=== PATIENT | female | born 1995 | race Caucasian/White ===

== ENCOUNTER 2016-10-17 22:32 | Observation (INO) | payer OTHER ==
[2016-10-17] MEDS ORDERED: SODIUM CHLORIDE 0.9% 500 ML IV STA (22:42)
--- NOTE | 2016-10-17 22:47 | ED ---
General Adult HPI - General Chief complaint: Overdose Stated complaint: Overdose Time Seen by Provider: 10/17/16 22:33 Source: patient, RN notes reviewed Mode of arrival: EMS Limitations: no limitations - History of Present Illness Initial comments: Patient is a pleasant 21-year-old female presenting to the emergency department following a syncopal episode. Patient admits to doing LSD yesterday sometime around 4 PM. Patient states she has not been a year drinking or sleeping. Patient states she just feels somewhat tired. Patient denies thoughts of self- harm or intentional overdose. Patient states she has passed out several times in the past related to dehydration. Patient states she feels she passed out this time because she is dehydrated. No chest pain or palpitations. No dyspnea. No abdominal pain. No headache or weakness or confusion. - Related Data Home Medications Medication Instructions Recorded Confirmed No Known Home Medications [No 10/17/16 10/17/16 Known Home Medications] Allergies Allergy/AdvReac Type Severity Reaction Status Date / Time No Known Allergies Allergy Verified 10/17/16 22:37 Review of Systems ROS Statement: Those systems with pertinent positive or pertinent negative responses have been documented in the HPI. ROS Other: All systems not noted in ROS Statement are negative. Constitutional: Denies: fever Eyes: Denies: eye pain ENT: Denies: ear pain Respiratory: Denies: cough Cardiovascular: Reports: syncope. Denies: chest pain Endocrine: Denies: fatigue Gastrointestinal: Denies: abdominal pain Genitourinary: Denies: dysuria Musculoskeletal: Denies: back pain Skin: Denies: lesions Past Medical History Additional Past Medical History / Comment(s): PCOS History of Any Multi-Drug Resistant Organisms: None Reported Past Surgical History: No Surgical Hx Reported Past Psychological History: No Psychological Hx Reported Smoking Status: Never smoker Past Alcohol Use History: None Reported Past Drug Use History: Marijuana General Exam Limitations: no limitations General appearance: alert, in no apparent distress Head exam: Present: atraumatic, normocephalic Eye exam: Present: normal appearance, PERRL, EOMI. Absent: nystagmus ENT exam: Present: normal oropharynx Neck exam: Present: normal inspection Respiratory exam: Present: normal lung sounds bilaterally Cardiovascular Exam: Present: regular rate, normal rhythm Expanded Peripheral pulses: 2+: Radial (R), Radial (L), Dorsalis Pedis (R), Dorsalis Pedis (L) Extremities exam: Present: normal inspection, full ROM Neurological exam: Present: alert, CN II-XII intact. Absent: motor sensory deficit Expanded Motor strength exam: RUE: 5, LUE: 5, RLE: 5, LLE: 5 Psychiatric exam: Present: other (Patient does appear hypomanic.) Skin exam: Present: other (Old healed forearm abrasions) Course Vital Signs 10/17/16 22:33 Temperature 98.3 F Pulse Rate 74 Respiratory 18 Rate Blood Pressure 143/86 O2 Sat by Pulse 97 Oximetry EKG Findings - EKG Comments: EKG Findings:: Normal sinus rhythm at 94. IA 190. QRS 82. QT 550. QTC 687. Normal axis. Normal QRS. Normal ST-T. Medical Decision Making - Medical Decision Making Patient reexamined and resting comfortably in bed. Patient symptom-free. Patient updated on results and concerns regarding EKG. Case discussed in detail with Dr. Baldwin, who will admit for hospital call. - Lab Data Result diagrams: 10/17/16 21:45 10/17/16 21:45 Lab Results 10/17/16 10/17/16 10/17/16 Range/Units 21:45 21:45 21:45 WBC 5.1 (4.0-11.0) k/uL RBC 4.14 (3.80-5.40) m/uL Hgb 12.6 (11.4-16.0) gm/dL Hct 38.0 (34.0-46.0) % MCV 91.8 (80.0-100.0) fL MCH 30.3 (25.0-35.0) pg MCHC 33.1 (31.0-37.0) g/dL RDW 13.8 (11.5-15.5) % Plt Count 277 (150-450) k/uL Neutrophils % 64 % Lymphocytes % 26 % Monocytes % 6 % Eosinophils % 0 % Basophils % 1 % Neutrophils # 3.3 (1.3-7.7) k/uL Lymphocytes # 1.3 (1.0-4.8) k/uL Monocytes # 0.3 (0-1.0) k/uL Eosinophils # 0.0 (0-0.7) k/uL Basophils # 0.0 (0-0.2) k/uL PT 11.9 (9.0-12.0) sec INR 1.2 (<1.1) Sodium 138 (137-145) mmol/L Potassium 3.4 L (3.5-5.1) mmol/L Chloride 103 (98-107) mmol/L Carbon Dioxide 22 (22-30) mmol/L Anion Gap 13 mmol/L BUN 11 (7-17) mg/dL Creatinine 0.60 (0.52-1.04) mg/dL Est GFR (MDRD) Af Amer >60 (>60 ml/min/1.73 sqM) Est GFR (MDRD) Non-Af >60 (>60 ml/min/1.73 sqM) Glucose 105 H (74-99) mg/dL Calcium 9.3 (8.4-10.2) mg/dL Phosphorus 3.2 (2.5-4.5) mg/dL Magnesium 1.7 (1.6-2.3) mg/dL Total Bilirubin 0.7 (0.2-1.3) mg/dL AST 35 (14-36) U/L ALT 34 (9-52) U/L Alkaline Phosphatase 80 (38-126) U/L Total Protein 8.2 (6.3-8.2) g/dL Albumin 4.5 (3.5-5.0) g/dL Urine HCG, Qual (Not Detectd) Salicylates <1.0 mg/dL Urine Opiates Screen (NotDetected) Ur Oxycodone Screen (NotDetected) Urine Methadone Screen (NotDetected) Ur Propoxyphene Screen (NotDetected) Acetaminophen <10.0 ug/mL Ur Barbiturates Screen (NotDetected) U Tricyclic Antidepress (NotDetected) Ur Phencyclidine Scrn (NotDetected) Ur Amphetamines Screen (NotDetected) U Methamphetamines Scrn (NotDetected) U Benzodiazepines Scrn (NotDetected) Urine Cocaine Screen (NotDetected) U Marijuana (THC) Screen (NotDetected) Serum Alcohol <10 mg/dL 10/17/16 10/17/16 Range/Units 22:50 22:50 WBC (4.0-11.0) k/uL RBC (3.80-5.40) m/uL Hgb (11.4-16.0) gm/dL Hct (34.0-46.0) % MCV (80.0-100.0) fL MCH (25.0-35.0) pg MCHC (31.0-37.0) g/dL RDW (11.5-15.5) % Plt Count (150-450) k/uL Neutrophils % % Lymphocytes % % Monocytes % % Eosinophils % % Basophils % % Neutrophils # (1.3-7.7) k/uL Lymphocytes # (1.0-4.8) k/uL Monocytes # (0-1.0) k/uL Eosinophils # (0-0.7) k/uL Basophils # (0-0.2) k/uL PT (9.0-12.0) sec INR (<1.1) Sodium (137-145) mmol/L Potassium (3.5-5.1) mmol/L Chloride (98-107) mmol/L Carbon Dioxide (22-30) mmol/L Anion Gap mmol/L BUN (7-17) mg/dL Creatinine (0.52-1.04) mg/dL Est GFR (MDRD) Af Amer (>60 ml/min/1.73 sqM) Est GFR (MDRD) Non-Af (>60 ml/min/1.73 sqM) Glucose (74-99) mg/dL Calcium (8.4-10.2) mg/dL Phosphorus (2.5-4.5) mg/dL Magnesium (1.6-2.3) mg/dL Total Bilirubin (0.2-1.3) mg/dL AST (14-36) U/L ALT (9-52) U/L Alkaline Phosphatase (38-126) U/L Total Protein (6.3-8.2) g/dL Albumin (3.5-5.0) g/dL Urine HCG, Qual Not Detected (Not Detectd) Salicylates mg/dL Urine Opiates Screen Not Detected (NotDetected) Ur Oxycodone Screen Not Detected (NotDetected) Urine Methadone Screen Not Detected (NotDetected) Ur Propoxyphene Screen Not Detected (NotDetected) Acetaminophen ug/mL Ur Barbiturates Screen Not Detected (NotDetected) U Tricyclic Antidepress Not Detected (NotDetected) Ur Phencyclidine Scrn Not Detected (NotDetected) Ur Amphetamines Screen Not Detected (NotDetected) U Methamphetamines Scrn Not Detected (NotDetected) U Benzodiazepines Scrn Not Detected (NotDetected) Urine Cocaine Screen Not Detected (NotDetected) U Marijuana (THC) Screen Detected H (NotDetected) Serum Alcohol mg/dL - Radiology Data Interpreted by me: Chest x-ray shows no acute process Disposition Clinical Impression: Syncope, QT prolongation Disposition: ADMITTED IP TO THIS HOSP
[2016-10-17 23:03] LABS: Basophils % (A) 1 %; CH 30.9; CHCM 33.8; Eosinophils % (A) 0 %; HDW 2.87; HGB 12.6 gm/dL (11.4-16.0); Luc # (Auto) 0.16; Luc % (Auto) 3; Lymphocytes # (A) 1.3 k/uL (1.0-4.8); Lymphocytes % (A) 26 %; MCH 30.3 pg (25.0-35.0); MCHC 33.1 g/dL (31.0-37.0); MCV 91.8 fL (80.0-100.0); Mean Platelet Volume 6.3; Monocytes # (A) 0.3 k/uL (0-1.0); Monocytes % (A) 6 %; Neutrophils # (A) 3.3 k/uL (1.3-7.7); Neutrophils % (A) 64 %; RBC 4.14 m/uL (3.80-5.40); RDW 13.8 % (11.5-15.5); WBC 5.1 k/uL (4.0-11.0); WBC (Perox) 5.11
[2016-10-17 23:04] LABS: INR 1.2 (<1.1); Prothrombin Time 11.9 sec (9.0-12.0)
[2016-10-17 23:10] LABS: ALT 34 U/L (9-52); AST 35 U/L (14-36); Acetaminophen <10.0 ug/mL; Alcohol <10 mg/dL; Alkaline Phosphatase 80 U/L (38-126); Anion Gap 13 mmol/L; Blood Urea Nitrogen 11 mg/dL (7-17); Calcium 9.3 mg/dL (8.4-10.2); Carbon Dioxide 22 mmol/L (22-30); Chloride 103 mmol/L (98-107); Glucose 105 mg/dL (74-99); Magnesium 1.7 mg/dL (1.6-2.3); Non-African American GFR(MDRD) >60 (>60 ml/min/1.73 sqM); Phosphorous 3.2 mg/dL (2.5-4.5); Potassium 3.4 mmol/L (3.5-5.1); Salicylate <1.0 mg/dL; Sodium 138 mmol/L (137-145); Total Bilirubin 0.7 mg/dL (0.2-1.3); Total Protein 8.2 g/dL (6.3-8.2)
[2016-10-17 23:18] LABS: Creatine Kinase 460 U/L (30-135)
[2016-10-17] MEDS ORDERED: NALOXONE 0.4 MG/ML 1 ML VIAL IV PRN (23:27)
[2016-10-17 23:32] LABS: Creatine Kinase MB 1.5 ng/mL (0.0-2.4); Troponin I <0.012 ng/mL (0.000-0.034)
--- NOTE | 2016-10-17 23:34 | XR ---
EXAM: XR Chest, 1 View CLINICAL HISTORY: Reason: syncope TECHNIQUE: Frontal view of the chest. COMPARISON: No relevant prior studies available. FINDINGS: Lungs: Unremarkable. No consolidation. Pleural space: Unremarkable. No pneumothorax. Heart: Unremarkable. No cardiomegaly. Mediastinum: Unremarkable. Bones/joints: Unremarkable. IMPRESSION: No acute cardiopulmonary disease.
--- NOTE | 2016-10-17 23:45 | CT ---
EXAM: CT Head Without Intravenous Contrast CLINICAL HISTORY: Reason: syncope TECHNIQUE: Axial computed tomography images of the head/brain without intravenous contrast. CTDI is 60.3 mGy and DLP is 1199 mGy-cm This CT exam was performed using one or more of the following dose reduction techniques: automated exposure control, adjustment of the mA and/or kV according to patient size, and/or use of iterative reconstruction technique. COMPARISON: No relevant prior studies available. FINDINGS: Brain: Unremarkable. No hemorrhage. No acute cortical infarct. No mass effect or midline shift. Ventricles: Unremarkable. Bones/joints: Unremarkable. No acute fracture. Soft tissues: Unremarkable. Sinuses: Unremarkable as visualized. Mastoid air cells: Unremarkable as visualized. IMPRESSION: No acute intracranial process.
--- NOTE | 2016-10-18 11:49 | P.CRDCN ---
History of Present Illness Consult date: 10/18/16 Chief complaint: Syncope History of present illness: This is a pleasant 21-year-old female patient who was brought to the emergency room because she had syncope at home. She was in her usual state of health when she was at home yesterday and she tried to stand and suddenly lost her consciousness. Her boyfriend found the patient on the floor. We don't know for how long she lost her consciousness. No associative symptoms of chest pain or shortness of breath or dizziness or lightheadedness before. The patient stated that she had similar episode in the past. The EKG showed sinus rhythm with a prolonged QT interval. The blood work came in to be positive for marijuana. Also the patient was hypokalemic. The patient has no significant family history of sudden cardiac . I am going to consult Dr. Dumont regarding prolonged QT. Past Medical History Additional Past Medical History / Comment(s): PCOS History of Any Multi-Drug Resistant Organisms: None Reported Past Surgical History: No Surgical Hx Reported Past Anesthesia/Blood Transfusion Reactions: No Reported Reaction Additional Past Anesthesia/Blood Transfusion Reaction / Comment(s): patient has never received blood transfusions of anesthesia Past Psychological History: Bipolar Smoking Status: Never smoker Past Alcohol Use History: None Reported Past Drug Use History: Marijuana - Past Family History Father Family Medical History: No Reported History Mother Family Medical History: No Reported History Medications and Allergies Home Medications Medication Instructions Recorded Confirmed Type No Known Home Medications [No 10/17/16 10/18/16 History Known Home Medications] Allergies Allergy/AdvReac Type Severity Reaction Status Date / Time metronidazole [From Flagyl] Allergy Rash/Hives Verified 10/18/16 07:40 Milk Containing Products AdvReac Nausea & Verified 10/18/16 07:40 [Dairy] Vomiting Physical Exam Vitals: Vital Signs Temp Pulse Pulse Resp BP BP Pulse Ox 10/18/16 09:25 97 10/18/16 08:00 97.5 F L 92 18 115/65 100 10/18/16 04:00 81 18 115/70 97 10/18/16 00:06 98.9 F 62 18 115/76 96 Intake and Output 10/17/16 10/18/16 10/18/16 22:59 06:59 14:59 Intake Total 120 Balance 120 Intake: Oral 120 Other: Voiding Method Toilet Urinal # Voids 1 0 Weight 59.8 kg - Constitutional General appearance: no acute distress - Respiratory Respiratory: bilateral: CTA - Cardiovascular Rhythm: regular Heart sounds: normal: S1, S2 Results 10/17/16 21:45 10/17/16 21:45 Current Medications Generic Name Dose Route Start Last Admin Trade Name Freq PRN Reason Stop Dose Admin Naloxone HCl 0.2 mg 10/17/16 23:27 Narcan IV Q2M PRN Opioid Reversal Intake and Output 10/17/16 10/18/16 10/18/16 22:59 06:59 14:59 Intake Total 120 Balance 120 Intake: Oral 120 Other: Voiding Method Toilet Urinal # Voids 1 0 Weight 59.8 kg Assessment and Plan Plan: Assessment Recurrent syncope Abnormal EKG with prolonged QT Plan Replace the potassium Consult electrophysiology Obtain an echocardiogram was Doppler
--- NOTE | 2016-10-18 14:49 | HP ---
DATE OF ADMISSION: . CHIEF COMPLAINT: A 21-year-old white female with syncope. HISTORY OF PRESENT ILLNESS: This is a 21-year-old white female with syncope. She is found ( ) at home and loss consciousness and fell. Boyfriend found the patient on the floor, does not know how long she had lost consciousness. She was brought to the hospital, evaluated in the emergency room. She had a prolonged QT interval. States she is on marijuana and LSD at home, hypokalemic. No significant family history of sudden cardiac . Admitted for prolonged QTc. Has clinical history of bipolar. No smoker, positive marijuana. FAMILY HISTORY: Father negative. Mother negative. MEDICATIONS: No home medicines. ALLERGIES: FLAGYL. PHYSICAL EXAM: Temp 97.5, pulse 92, respirations 16, blood pressure 115/60's. CARDIOVASCULAR: S1, S2. LUNGS: Clear. GI: Soft. HEMATOLOGIC: Negative Homans. PSYCH: Fair mood and affect. NEUROLOGIC: Alert and oriented x3. VASCULAR: Normal dorsalis pedis, posterior tibial and radial pulses. Sodium 138, potassium 3.4, white count 5.1, and hemoglobin 12.6. ASSESSMENT: 1. Recurrent syncope, abnormal EKG with prolonged QT, replace her potassium. Possible ETC test will be done, order echo. She will be admitted, watched for 24 hours prior to discharge. Will check her thyroid levels. 2. Please see further orders on the chart.
[2016-10-19 01:23] VITALS: RESP 16
--- NOTE | 2016-10-19 10:56 | P.PN ---
Subjective 21-year-old female being seen on rounds with the attending this morning patient was seen and examined. Patient currently is denying any dizziness lightheadedness heart palpitations chest pain or shortness of breath. Patients being followed by cardiology. Patient additionally to be seen today by Dr. wolfe for an EKG that showed sinus rhythm with a prolonged QT interval. Patient did present to the emergency room with a syncopal episode at home. Patient is presenting to the emergency room per the workup did show blood work positive for marijuana. On admission the potassium was noted to be low was 3.4. Objective - Vital Signs Vital signs: Vital Signs Temp 97.5 F L 10/19/16 08:44 Pulse 55 L 10/19/16 08:44 Resp 16 10/19/16 08:44 BP 100/71 10/19/16 08:44 Pulse Ox 99 10/19/16 08:44 Intake & Output 10/18/16 10/19/16 10/19/16 18:59 06:59 18:59 Intake Total 474 118 Balance 474 118 Weight 59.5 kg Intake: Oral 474 118 Other: Voiding Method Toilet Toilet Urinal # Voids 1 1 # Bowel Movements 0 0 - Exam Physical exam 21-year-old female sitting up in bed oriented 3 in no acute distress Lungs essentially clear adequate air movement on room air Heart S1-S2 audible and regular Abdomen soft nontender reports no nausea vomiting Extremities no edema noted - Labs CBC & Chem 7: 10/17/16 21:45 10/17/16 21:45 Assessment and Plan Plan: Impression Present on admission syncopal episode unclear etiology Present on admission prolonged QT interval 0.550 per 12-lead EKG Present on admission positive drug screen for marijuana Present on admission hypokalemia History of polysubstance abuse Clinical history of bipolar Plan Check labs now correct as indicated Await electrophysiology eval by Dr. wolfe DVT and GI prophylaxis Further recommendations pending The above dictated assessment and findings were discussed with dr liriano Impression and the plan of care have been dictated as directed. Carie Pope nurse practitioner acting as a scribe for dr liriano
[2016-10-19 11:44] LABS: ALT 33 U/L (9-52); AST 31 U/L (14-36); Alkaline Phosphatase 69 U/L (38-126); Anion Gap 11 mmol/L; Blood Urea Nitrogen 5 mg/dL (7-17); Calcium 9.9 mg/dL (8.4-10.2); Carbon Dioxide 25 mmol/L (22-30); Chloride 104 mmol/L (98-107); Glucose 89 mg/dL (74-99); Magnesium 1.9 mg/dL (1.6-2.3); Non-African American GFR(MDRD) >60 (>60 ml/min/1.73 sqM); Potassium 4.5 mmol/L (3.5-5.1); Sodium 140 mmol/L (137-145); Total Bilirubin 0.8 mg/dL (0.2-1.3); Total Protein 8.7 g/dL (6.3-8.2)
--- NOTE | 2016-10-19 11:50 | ECHOF ---
Referral Reason:syncope MEASUREMENTS -------- HEIGHT: 175.3 cm WEIGHT: 59.4 kg BP: 115/65 RVIDd: 2.6 cm (< 3.3) IVSd: 1.0 cm (0.6 - 1.1) LVIDd: 4.4 cm (3.9 - 5.3) LVPWd: 1.0 cm (0.6 - 1.1) IVSs: 1.1 cm LVIDs: 4.0 cm LVPWs: 1.0 cm LA Diam: 2.9 cm (2.7 - 3.8) LAESV Index (A-L): 19.83 ml/m Ao Diam: 2.6 cm (2.0 - 3.7) AV Cusp: 2.1 cm (1.5 - 2.6) LA Diam: 2.8 cm (2.7 - 3.8) MV EXCURSION: 24.816 mm (> 18.000) MV EF SLOPE: 129 mm/s (70 - 150) EPSS: 0.3 cm MV E Jose: 0.87 m/s MV DecT: 200 ms MV A Jose: 0.43 m/s MV E/A Ratio: 2.04 RAP: 5.00 mmHg RVSP: 13.62 mmHg FINDINGS -------- Sinus rhythm. This was a technically good study. LV size, wall thickness and systolic function are normal, with an EF greater than 55%. The right ventricle is normal in size. Normal LA size by volume 22+/-6 ml/m2. The right atrial size is normal. The aortic valve is trileaflet, and appears structurally normal. No aortic stenosis or regurgitation. Mild mitral regurgitation is present. Redundant MV Leaflet Mild tricuspid regurgitation present. There is no evidence of pulmonary hypertension. The right ventricular systolic pressure, as measured by Doppler, is 13.62mmHg. There is no pulmonic regurgitation present. The aortic root size is normal. There is no pericardial effusion. CONCLUSIONS -------- 1. LV size, wall thickness and systolic function are normal, with an EF greater than 55%. 2. Mild mitral regurgitation is present. 3. Redundant MV Leaflet 4. Mild tricuspid regurgitation present. 5. There is no evidence of pulmonary hypertension. 6. The right ventricular systolic pressure, as measured by Doppler, is 13.62mmHg. 7. The aortic root size is normal. VACCINE SPECIALIST: Rachel Godoy RDCS
[2016-10-19 12:59] VITALS: BP 104/67; PULSE 72; TEMP 97.4
--- NOTE | 2016-10-19 14:53 | P.PN ---
Subjective Principal diagnosis: Syncope This is a pleasant 21-year-old female patient who was brought to the emergency room because she had syncope at home. She was in her usual state of health when she was at home yesterday and she tried to stand and suddenly lost her consciousness. Her boyfriend found the patient on the floor. We don't know for how long she lost her consciousness. No associative symptoms of chest pain or shortness of breath or dizziness or lightheadedness before. The patient stated that she had similar episode in the past.The EKG showed sinus rhythm with a prolonged QT interval. The blood work came in to be positive for marijuana. Also the patient was hypokalemic.The patient has no significant family history of sudden cardiac . Orthostatic blood pressure and heart rate were obtained which were negative. TSH normal. Dr. Dumont was requested to see the patient in consultation for prolonged QT. Objective - Vital Signs Vital signs: Vital Signs Temp 97.4 F L 10/19/16 12:00 Pulse 72 10/19/16 12:00 Resp 16 10/19/16 12:00 BP 104/67 10/19/16 12:00 Pulse Ox 98 10/19/16 12:00 Intake & Output 10/18/16 10/19/16 10/19/16 18:59 06:59 18:59 Intake Total 474 118 Balance 474 118 Weight 59.5 kg Intake: Oral 474 118 Other: Voiding Method Toilet Toilet Urinal # Voids 1 1 # Bowel Movements 0 0 - Exam PHYSICAL EXAMINATION: HEENT: Head is atraumatic, normocephalic. Pupils equal, round. Neck is supple. There is no elevated jugular venous pressure. HEART EXAMINATION: Heart S1, S2 normal. No murmur or gallop heard. CHEST EXAMINATION: Lungs are clear to auscultation and precussion. No chest wall tenderness is noted on palpation or with deep breathing. ABDOMEN: Soft, nontender. Bowel sounds are heard. No organomegaly noted. EXTREMITIES: 2+ peripheral pulses with no evidence of peripheral edema and no calf tenderness noted. NEUROLOGIC patient is awake, alert and oriented -3. . - Labs CBC & Chem 7: 10/17/16 21:45 10/19/16 10:59 Labs: Abnormal Lab Results - Last 24 Hours (Table) 10/19/16 Range/Units 10:59 BUN 5 L (7-17) mg/dL Total Protein 8.7 H (6.3-8.2) g/dL Assessment and Plan (1) Marijuana smoker Status: Acute (2) QT prolongation Status: Acute (3) Syncope Status: Acute Plan: From cardiology's perspective, orthostatic blood pressure and heart rate have been negative. Echocardiogram with Doppler study was performed which revealed normal left ventricular systolic function. Dr. Dumont will be in to see the patient in consultation today. Further recommendations to follow. DNP note has been reviewed, I agree with a documented findings and plan of care. Patient was seen and examined.
--- NOTE | 2016-10-19 15:34 | P.DS ---
Providers Date of admission: 10/17/16 23:27 Expected date of discharge: 10/19/16 Attending physician: Heath Liriano Consults: 10/19/16 07:45 Consult Physician Urgent Consulting Provider: Deepak Wolfe Consult Reason/Comments: long QT Do you want consulting provider notified?: Yes Primary care physician: Stated None Hospital Course: This is a pleasant 21-year-old female patient who was brought to the emergency room because she had syncope at home. She was in her usual state of health when she was at home yesterday and she tried to stand and suddenly lost her consciousness. Her boyfriend found the patient on the floor. We don't know for how long she lost her consciousness. No associative symptoms of chest pain or shortness of breath or dizziness or lightheadedness before. The patient stated that she had similar episode in the past.The EKG showed sinus rhythm with a prolonged QT interval. The blood work came in to be positive for marijuana. Also the patient was hypokalemic.The patient has no significant family history of sudden cardiac . Orthostatic blood pressure and heart rate were obtained which were negative. TSH normal. Dr. Wolfe was requested to see the patient in consultation for prolonged QT. Patient did have an echocardiogram that showed normal LV systolic function. Dr. wolfe indicated that from his perspective the patient could be followed in the outpatient setting for an outpatient stress test no further EP workup at this time Patient was felt to be hemodynamically stable and appropriate proceed with a discharge to home Impression Present on admission syncopal episode unclear etiology Present on admission prolonged QT interval 0.550 per 12-lead EKG Present on admission positive drug screen for marijuana Present on admission hypokalemia History of polysubstance abuse Clinical history of bipolar The above dictated assessment and findings were discussed with dr liriano Impression and the plan of care have been dictated as directed. Carie Pope nurse practitioner acting as a scribe for dr liriano Plan - Discharge Summary Discharge Medication List No Known Home Medications [No Known Home Medications] 10/17/16 [History] Follow up Appointment(s)/Referral(s): None,Stated [Primary Care Provider] - 1-2 days Heath Liriano MD [STAFF PHYSICIAN] - 10/21/16 Discharge Disposition: HOME SELF-CARE
--- NOTE | 2016-10-19 19:07 | P.CRDCN ---
History of Present Illness History of present illness: Asked by Dr. Andino and Dr. novoa to consult on this patient who presented with an episode of loss of consciousness upon standing with the computer readout of the QT interval is being prolonged. I went to see the patient at 7 PM today but she had already been discharged She will be seeing Dr. Andino as an outpatient Past Medical History Additional Past Medical History / Comment(s): PCOS History of Any Multi-Drug Resistant Organisms: None Reported Past Surgical History: No Surgical Hx Reported Past Anesthesia/Blood Transfusion Reactions: No Reported Reaction Additional Past Anesthesia/Blood Transfusion Reaction / Comment(s): patient has never received blood transfusions of anesthesia Past Psychological History: Bipolar Smoking Status: Never smoker Past Alcohol Use History: None Reported Past Drug Use History: Marijuana - Past Family History Father Family Medical History: No Reported History Mother Family Medical History: No Reported History Medications and Allergies Home Medications Medication Instructions Recorded Confirmed Type No Known Home Medications [No 10/17/16 10/18/16 History Known Home Medications] Allergies Allergy/AdvReac Type Severity Reaction Status Date / Time metronidazole [From Flagyl] Allergy Rash/Hives Verified 10/18/16 07:40 Milk Containing Products AdvReac Nausea & Verified 10/18/16 07:40 [Dairy] Vomiting Physical Exam Vitals: Vital Signs Temp Pulse Pulse Pulse Pulse Resp BP 10/19/16 12:00 97.4 F L 72 16 10/19/16 08:44 97.5 F L 101 H 102 H 55 L 16 107/60 10/19/16 04:00 58 L 16 10/19/16 00:00 97.3 F L 77 16 10/18/16 20:00 97.4 F L 80 16 BP BP BP Pulse Ox 10/19/16 12:00 104/67 98 10/19/16 08:44 122/73 100/71 99 10/19/16 04:00 111/62 98 10/19/16 00:00 112/73 100 10/18/16 20:00 107/66 100 Intake and Output 10/19/16 10/19/16 10/19/16 06:59 14:59 22:59 Intake Total 620 Output Total 0 Balance 620 Intake: Oral 620 Output: Stool 0 Other: Voiding Method Toilet # Voids 1 Weight 59.5 kg Results 10/17/16 21:45 10/19/16 10:59 Cardiac Enzymes 10/19/16 Range/Units 10:59 AST 31 (14-36) U/L Comprehensive Metabolic Panel 10/19/16 Range/Units 10:59 Sodium 140 (137-145) mmol/L Potassium 4.5 (3.5-5.1) mmol/L Chloride 104 (98-107) mmol/L Carbon Dioxide 25 (22-30) mmol/L BUN 5 L (7-17) mg/dL Creatinine 0.63 (0.52-1.04) mg/dL Glucose 89 (74-99) mg/dL Calcium 9.9 (8.4-10.2) mg/dL AST 31 (14-36) U/L ALT 33 (9-52) U/L Alkaline Phosphatase 69 (38-126) U/L Total Protein 8.7 H (6.3-8.2) g/dL Albumin 4.7 (3.5-5.0) g/dL Intake and Output 10/19/16 10/19/16 10/19/16 06:59 14:59 22:59 Intake Total 620 Output Total 0 Balance 620 Intake: Oral 620 Output: Stool 0 Other: Voiding Method Toilet # Voids 1 Weight 59.5 kg 10/19/16 10:59
== END 2016-10-19 18:16 | disposition home or self-care (01) ==
LOC: EC 22:32 → 6SEL 23:27 → INTOOBSV 23:27 → 6SEL 10-18 00:26
PROVIDERS: ADMIT Family Medicine; ATTEND Family Medicine
DX: I45.81 Long QT syndrome (principal); R55 Syncope and collapse; E28.2 Polycystic ovarian syndrome; E87.6 Hypokalemia; F12.90 Cannabis use, unspecified, uncomplicated; F31.9 Bipolar disorder, unspecified; F19.10 Other psychoactive substance abuse, uncomplicated; W19.XXXA Unspecified fall, initial encounter; Y92.009 Unspecified place in unspecified non-institutional (private) residence as the place of occurrence of the external cause; Z88.3 Allergy status to other anti-infective agents
CPT/HCPCS: 96360; 99285; 36415; 94760; 93005; 93306; 84439; 84481; 80053 ×2; 82550; 82553; 83735 ×2; 84100; 84443; 84484; 85025; 85610; 81025; 80306; 83520 ×2; 80320; 71010; 70450; G0378 ×3

== ENCOUNTER 2024-06-04 22:08 | Emergency (ER) | payer OTHER ==
--- NOTE | 2024-06-04 23:14 | ED ---
Dizziness HPI - General Chief Complaint: Dizziness Stated Complaint: Dizziness,Chest Tightness Time Seen by Provider: 06/04/24 22:25 Source: patient Mode of arrival: ambulatory Limitations: no limitations - History of Present Illness Initial Comments: This is a pleasant 29-year-old female presenting today for dizziness. Patient states she has had ongoing upper respiratory infection symptoms over the last few days , including cough productive of clear sputum, runny nose, nasal congestion, headache, and today began experiencing dizziness with exertion. Today had two episodes of NBNB emesis and few loose stools that are small in volume- denies hematochezia or melena. She states every time she tried to walk up the stairs of her home she felt too dizzy to continue as well as short of breath. States that between yesterday and today has been experiencing chest pain as well, describing it as "feeling like having a panic attack". Yesterday patient had a syncopal episode while she is sitting on the couch next to her boyfriend and believes unconscious for about 30 seconds. She did not hit her head when this happened. She states that these episodes of chest pain and sycopal episodes have been a chronic issue for her. Has had dizziness like this in the past as well and states these issues are typically exacerbated when she has a URI or is sick. The friend that accompanies her today has been suffering from similar URI symptoms to the patient. Patient does not take any medications every day. She has felt "hot and cold but denies measured fevers. Did take 600 mg of ibuprofen this evening about an hour prior to arrival and states that her symptoms have since improved since arriving on the emergency department. Headache is similar to headache she has had the past. She currently denies vision changes, numbness, weakness or slurred speech. She denies hemoptysis. States yesterday she had crampy abdominal pain but otherwise denies abdominal pain. Surgical history includes a prior hysterectomy. She is not on any type of estrogen replacement therapy/ exogenous hormone use. Is a non-smoker, no recent surgeries hospitalizations or travel. No history of prior PE/DVT. No history of cancer. Father has hx of stroke. Patient states that when she has come in for similar symptoms to today, she was told she had low potassium, so comes in today to get her labs checked and make sure that has not occurred. No fam hx of sudden cardiac . Has history of frequent syncopal episodes. - Related Data Previous Rx's Medication Instructions Recorded OLANZapine [ZyPREXA] 15 mg PO HS #30 tab 06/16/17 Sertraline [Zoloft] 100 mg PO DAILY #30 tab 06/16/17 Allergies Allergy/AdvReac Type Severity Reaction Status Date / Time adhesive tape Allergy Rash/Hives Verified 06/12/17 16:12 metronidazole [From Flagyl] Allergy Rash/Hives Verified 06/12/17 16:12 pineapple Allergy Unknown Verified 06/13/17 18:27 Milk Containing Products AdvReac Nausea & Verified 06/12/17 16:12 (Dairy) Vomiting [Dairy] Review of Systems ROS Statement: Those systems with pertinent positive or pertinent negative responses have been documented in the HPI. ROS Other: All systems not noted in ROS Statement are negative. Past Medical History Additional Past Medical History / Comment(s): QT prolongation, suicide attempt. 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 Poss POTS- no confirmed History of Any Multi-Drug Resistant Organisms: None Reported Past Surgical History: Hysterectomy Past Anesthesia/Blood Transfusion Reactions: No Reported Reaction Additional Past Anesthesia/Blood Transfusion Reaction / Comment(s): patient has never received blood transfusions of anesthesia Past Psychological History: Bipolar, Depression Smoking Status: Vaper Past Alcohol Use History: None Reported Past Drug Use History: Marijuana - Past Family History Father Family Medical History: No Reported History Mother History Unknown: Yes Family Medical History: No Reported History General Exam - General Exam Comments Initial Comments: PE: CONSTITUTIONAL: [no apparent distress, well appearing] SKIN: [warm, dry, no jaundice, hives or petechiae] EYES:[ pupils are equally round, extraocular movements intact without nystagmus, clear conjunctiva, non-icteric sclera] HENT: [normocephalic, atraumatic, moist mucus membranes, oropharynx clear without exudates] NECK: , [Full range of motion, normal appearance] PULMONARY: [clear to auscultation without wheezes, rhonchi, or rales, normal excursion, no accessory muscle use and no stridor] CARDIOVASCULAR:[ regular rate, rhythm, normal S1 and S2. No appreciated murmurs, rubs or gallops. Strong radial pulses with intact distal perfusion. No lower extremity edema] GASTROINTESTINAL: [soft, active bowel sounds throughout, non-tender, non- distended, no palpable masses, no rebound or guarding. No hepatosplenomegaly] GENITOURINARY: MUSCULOSKELETAL: [Extremities have no gross deformity, no edema, redness, or swelling. No calf swelling ] NEUROLOGIC: [_a/o x 3, GCS 15, normal mentation and speech. Moves all extrem ities x 4 without motor or sensory deficit] PSYCHIATRIC:[ _normal mood and affect, thought process is clear and linear] Limitations: no limitations Course Vital Signs 06/04/24 06/05/24 22:11 01:57 Temperature 98.8 F 97.7 F Pulse Rate 94 59 L Respiratory 20 16 Rate Blood Pressure 143/103 115/70 O2 Sat by Pulse 100 100 Oximetry EKG Findings - EKG Comments: EKG Findings:: Compared to EKG performed on 06/16/2017 slight T wave flattening in V2, otherwise no significant changesSinus rhythm, artifact is present throughout, rate 65 bpm DC interval 167 ms, QRS duration 85 ms, QT/QTc 368/379 ms, normal axis, no delta waves or Brugada pattern,Compared to EKG performed on 06/16/2017 slight T wave flattening in V2, otherwise no significant changes Medical Decision Making - Medical Decision Making Was pt. sent in by a medical professional or institution (DEMETRA Arias, TRAIN RESERVATION CLERK, urgent care, hospital, or prison...) When possible be specific @ -No Did you speak to anyone other than the patient for history (EMS, parent, family, police, friend...)? What history was obtained from this source @ -No Did you review nursing and triage notes (agree or disagree)? Why? @ -I reviewed nursing and triage notes-patient did not endorse racing heart to myself, endorsed sharp chest pain Were old charts reviewed (outside hosp., previous admission, EMS record, old EKG, old radiological studies, urgent care reports/EKG's, prison records)? Report findings Medical records reviewed, reviewed prior EKG, please see comments on comparison above On chart review, reviewed progress note from when patient was admitted in September 2016 after presenting to the emergency department for a syncopal episode and dizziness. Patient was ultimately admitted to the hospital and noted to have a prolonged QT interval, potassium was low at 3.4 and UDS was positive for marijuana. She was seen by cardiology during that admission and on review of consult note from cardiology echocardiogram was performed during that admission that showed normal left ventricular systolic function. Reviewed EKG from that admission patient had a QTc interval of 687, there were no delta waves or Brugada pattern. Differential Diagnosis (chest pain, altered mental status, abdominal pain women, abdominal pain men, vaginal bleeding, weakness, fever, dyspnea, syncope, headache, dizziness, GI bleed, back pain, seizure, CVA, palpatations, mental health, musculoskeletal)? @Differential Dizziness: Benign paroxysmal positional Vertigo, Meniere's disease, otitis media, acoustic neuroma, hypovolemic, arrhythmia, coronary artery syndrome, anemia, this is not meant to be an all-inclusive list. I did consider cerebellar stroke however patient has no focal neurologic deficits on exam, no cerebellar signs, dizziness occurred with exertion and resolves with rest, therefor to not feel additional workup for CVA indicated at this point EKG interpreted by me (3pts min.). @ -As above X-rays interpreted by me (1pt min.). @No cardiomegaly, consolidations or pneumothorax CT interpreted by me (1pt min.). @ -None done U/S interpreted by me (1pt. min.). @ -None done What testing was considered but not performed or refused? (CT, X-rays, U/S, labs)? Why? @Consider D-dimer however PERC rules applied and PE ruled out, further testing with D dimer not indicated What meds were considered but not given or refused? Why? @Considered Toradol for chest pain however patient had taken 600 mg of ibuprofen just prior to arrival Did you discuss the management of the patient with other professionals (professionals i.e. , PA, TRAIN RESERVATION CLERK, lab, RT, psych nurse, social media manager, weighbridge operator, teacher, safety and security officer, case therapist)? Give summary @ -No Was smoking cessation discussed for >3mins.? @ -No Was critical care preformed (if so, how long)? @ -No Were there social determinants of health that impacted care today? How? (Homelessness, low income, unemployed, alcoholism, drug addiction, transportation, low edu. Level, literacy, decrease access to med. care, long term, rehab)? @ -No Was there de-escalation of care discussed even if they declined (Discuss DNR or withdrawal of care, Hospice)? @ -No What co-morbidities impacted this encounter? (DM, HTN, Smoking, COPD, CAD, Cancer, CVA, ARF, Chemo, Hep., AIDS, mental health diagnosis, sleep apnea, m orbid obesity)? @ possible POTs syndrome Was patient admitted / discharged? Hospital course, mention meds given and route, prescriptions, significant lab abnormalities, going to OR and other pertinent info. @ Discharged-this is a pleasant 29-year-old female with a past medical history of syncope, possible POTs, presenting for dizziness. Also endorsed sharp chest pain that "felt like a panic attack". States after taking ibuprofen this evening and arriving in the emergency department her symptoms have much improved. She states she came in because in the past she has had low potassium and wanted to make sure that wasn't occurring. Blood pressure arrival 143/103 pulse ox 100%, heart rate 94 temperature 98.9. Physical exam as above. Patient plan for IV fluids, chest x-ray, basic labs, UA, tylenol. Pt agreeable with POC. Pt with low risk chest pain, as this is not a new issue for her, is improving with ibuprofen so will forgo ASA. Chest pain on and offgoing for >24 hours, so if initial troponin within normal limits and pain continues to improve, will forgo repeat troponin as would suspect troponin to be elevated at this point if 2/2 ACS. PERC rule negative, I have a low suspicion for PE given chronicity of symptoms, lack or risk factors and associated URI symptoms, so further workup with D dimer not indicated at this point. Labs and imaging reviewed. Grossly within normal limits. Abnormal values not concerning for acute pathology related to presenting complaint. HEART score 1 (family hx). Updated patient. She endorses continued improvement of symptoms, is able to jaswant erate p.o. intake. Was able to walk to the bathroom without dizziness. Discussed plan for discharge home and the importance of oral rehydration therapy as well as return precautions. Patient comfortable with discharge at this point. In my medical judgment there is currently no evidence of an immediate life- threatening or surgical condition. Discharge is therefore indicated at this time. Discharge treatment instructions, follow up instructions, and appropriate emergency department return precautions were discussed with the patient and/or medical decision maker. Patient and/or medical decision maker expressed understanding of and agreed with the treatment plan, follow up instructions, and emergency department return precaution. All patient's and/or medical decision maker's questions were answered. Undiagnosed new problem with uncertain prognosis? @ -No Drug Therapy requiring intensive monitoring for toxicity (Heparin, Nitro, Insulin, Cardizem)? @ -No Were any procedures done? @ -No Diagnosis/symptom? @Dizziness, chest pain, upper respiratory symptoms, nausea vomiting Acute, or Chronic, or Acute on Chronic? @Acute, acute on chronic chest pain Uncomplicated (without systemic symptoms) or Complicated (systemic symptoms)? @ -Complicated Side effects of treatment? @ -No Exacerbation, Progression, or Severe Exacerbation? @ -No Poses a threat to life or bodily function? How? (Chest pain, [place], MA, pneumonia, PE, COPD, DKA, ARF, appy, cholecystitis, CVA, Diverticulitis, Homicidal, Suicidal, threat to staff... and all critical care pts) @ -No, not at time of discharge - Lab Data Result diagrams: 06/04/24 23:28 06/04/24 23:28 Lab Results 06/04/24 06/04/24 06/04/24 Range/Units 23:28 23:28 23:28 WBC 4.8 (3.8-10.6) k/uL RBC 4.84 (3.80-5.40) m/uL Hgb 13.9 (11.4-16.0) gm/dL Hct 43.6 (34.0-46.0) % MCV 90.0 (80.0-100.0) fL MCH 28.6 (25.0-35.0) pg MCHC 31.8 (31.0-37.0) g/dL RDW 12.3 (11.5-15.5) % Plt Count 243 (150-450) k/uL MPV 6.9 Neutrophils % 75 % Lymphocytes % 17 % Monocytes % 5 % Eosinophils % 3 % Basophils % 1 % Neutrophils # 3.5 (1.3-7.7) k/uL Lymphocytes # 0.8 L (1.0-4.8) k/uL Monocytes # 0.2 (0-1.0) k/uL Eosinophils # 0.1 (0-0.7) k/uL Basophils # 0.0 (0-0.2) k/uL PT 10.7 (10.0-12.5) sec INR 1.0 (<1.2) APTT 24.8 (22.0-30.0) sec Sodium 136 L (137-145) mmol/L Potassium 3.9 (3.5-5.1) mmol/L Chloride 105 (98-107) mmol/L Carbon Dioxide 23 (22-30) mmol/L Anion Gap 8 mmol/L BUN 7 (7-17) mg/dL Creatinine 0.59 (0.52-1.04) mg/dL Est GFR (CKD-EPI)AfAm >90 (>60 ml/min/1.73 sqM) Est GFR (CKD-EPI)NonAf >90 (>60 ml/min/1.73 sqM) Glucose 109 H (74-99) mg/dL Calcium 9.6 (8.4-10.2) mg/dL Magnesium 1.9 (1.6-2.3) mg/dL Total Bilirubin 1.1 (0.2-1.3) mg/dL AST 22 (14-36) U/L ALT 17 (4-34) U/L Alkaline Phosphatase 56 (38-126) U/L Troponin I (0.000-0.034) ng/mL NT-Pro-B Natriuret Pep 177 pg/mL Total Protein 7.6 (6.3-8.2) g/dL Albumin 4.8 (3.5-5.0) g/dL Amylase 43 (30-110) U/L Lipase 35 (23-300) U/L Urine Color Urine Appearance (Clear) Urine pH (5.0-8.0) Ur Specific [place] (1.001-1.035) Urine Protein (Negative) Urine Glucose (UA) (Negative) Urine Ketones (Negative) Urine Blood (Negative) Urine Nitrite (Negative) Urine Bilirubin (Negative) Urine Urobilinogen (<2.0) mg/dL Ur Leukocyte Esterase (Negative) Influenza Type A (PCR) (Not Detectd) Influenza Type B (PCR) (Not Detectd) RSV (PCR) (Not Detectd) SARS-CoV-2 (PCR) (Not Detectd) 06/04/24 06/05/24 06/05/24 Range/Units 23:28 00:25 01:20 WBC (3.8-10.6) k/uL RBC (3.80-5.40) m/uL Hgb (11.4-16.0) gm/dL Hct (34.0-46.0) % MCV (80.0-100.0) fL MCH (25.0-35.0) pg MCHC (31.0-37.0) g/dL RDW (11.5-15.5) % Plt Count (150-450) k/uL MPV Neutrophils % % Lymphocytes % % Monocytes % % Eosinophils % % Basophils % % Neutrophils # (1.3-7.7) k/uL Lymphocytes # (1.0-4.8) k/uL Monocytes # (0-1.0) k/uL Eosinophils # (0-0.7) k/uL Basophils # (0-0.2) k/uL PT (10.0-12.5) sec INR (<1.2) APTT (22.0-30.0) sec Sodium (137-145) mmol/L Potassium (3.5-5.1) mmol/L Chloride (98-107) mmol/L Carbon Dioxide (22-30) mmol/L Anion Gap mmol/L BUN (7-17) mg/dL Creatinine (0.52-1.04) mg/dL Est GFR (CKD-EPI)AfAm (>60 ml/min/1.73 sqM) Est GFR (CKD-EPI)NonAf (>60 ml/min/1.73 sqM) Glucose (74-99) mg/dL Calcium (8.4-10.2) mg/dL Magnesium (1.6-2.3) mg/dL Total Bilirubin (0.2-1.3) mg/dL AST (14-36) U/L ALT (4-34) U/L Alkaline Phosphatase (38-126) U/L Troponin I <0.012 (0.000-0.034) ng/mL NT-Pro-B Natriuret Pep pg/mL Total Protein (6.3-8.2) g/dL Albumin (3.5-5.0) g/dL Amylase (30-110) U/L Lipase (23-300) U/L Urine Color Yellow Urine Appearance Clear (Clear) Urine pH 7.0 (5.0-8.0) Ur Specific [place] 1.022 (1.001-1.035) Urine Protein Negative (Negative) Urine Glucose (UA) Negative (Negative) Urine Ketones Negative (Negative) Urine Blood Negative (Negative) Urine Nitrite Negative (Negative) Urine Bilirubin Negative (Negative) Urine Urobilinogen <2.0 (<2.0) mg/dL Ur Leukocyte Esterase Negative (Negative) Influenza Type A (PCR) Not Detected (Not Detectd) Influenza Type B (PCR) Not Detected (Not Detectd) RSV (PCR) Not Detected (Not Detectd) SARS-CoV-2 (PCR) Not Detected (Not Detectd) Disposition Clinical Impression: Dizziness, Chest pain, Nausea and vomiting, Symptoms of upper respiratory infection (URI) Disposition: HOME SELF-CARE Condition: Good Instructions (If sedation given, give patient instructions): Dizziness (ED) Additional Instructions: Every disease is a spectrum and a small chance still exists that a serious con dition could develop, for this reason, please monitor yourself closely for new, changing or worsening symptoms, failure of symptoms to resolve in 72 hours, change in your usual symptoms, coughing up blood or thick sputum, swelling in your legs, new or severe abdominal pain fever, inability to tolerate/keep down fluids or your medications, inability to follow up with outpatient providers as instructed and should you experience these symptoms or should you have any further concerns for your wellbeing please return to the ED or call 911 immediately. Please maintain a clear liquid diet for the next 24 hours and progress as you are able to tolerate. Please drink plenty of fluids and get plenty of rest. PLEASE call your primary care physician as soon as possible to arrange / discuss plan for followup appointment. Appointment in the next 1-3 days is strongly encouraged if possible. PLEASE let us know here before you leave if there is anything further we can do to be of any assistance. Take care and feel Better! Is patient prescribed a controlled substance at d/c from ED?: No Referrals: None,Stated [REFERRING] - 1-2 days
[2024-06-04 23:49] LABS: Basophils % (A) 1 %; Eosinophils # (A) 0.1 k/uL (0-0.7); Eosinophils % (A) 3 %; HCT 43.6 % (34.0-46.0); HGB 13.9 gm/dL (11.4-16.0); Lymphocytes # (A) 0.8 k/uL (1.0-4.8); Lymphocytes % (A) 17 %; MCH 28.6 pg (25.0-35.0); MCHC 31.8 g/dL (31.0-37.0); Mean Platelet Volume 6.9; Monocytes # (A) 0.2 k/uL (0-1.0); Monocytes % (A) 5 %; Neutrophils # (A) 3.5 k/uL (1.3-7.7); Neutrophils % (A) 75 %; Platelet Count 243 k/uL (150-450); RBC 4.84 m/uL (3.80-5.40); RDW 12.3 % (11.5-15.5); WBC 4.8 k/uL (3.8-10.6)
[2024-06-04 23:57] LABS: Partial Thromboplastin Time 24.8 sec (22.0-30.0); Prothrombin Time 10.7 sec (10.0-12.5)
[2024-06-05 00:12] LABS: ALT 17 U/L (4-34); AST 22 U/L (14-36); African American GFR (CKD) >90 (>60 ml/min/1.73 sqM); Albumin 4.8 g/dL (3.5-5.0); Alkaline Phosphatase 56 U/L (38-126); Amylase 43 U/L (30-110); Anion Gap 8 mmol/L; Blood Urea Nitrogen 7 mg/dL (7-17); Calcium 9.6 mg/dL (8.4-10.2); Carbon Dioxide 23 mmol/L (22-30); Chloride 105 mmol/L (98-107); Glucose 109 mg/dL (74-99); Lipase 35 U/L (23-300); Magnesium 1.9 mg/dL (1.6-2.3); Non-African American GFR(CKD) >90 (>60 ml/min/1.73 sqM); Potassium 3.9 mmol/L (3.5-5.1); Sodium 136 mmol/L (137-145); Total Bilirubin 1.1 mg/dL (0.2-1.3); Total Protein 7.6 g/dL (6.3-8.2)
[2024-06-05 00:20] LABS: NT-Pro-B-Type Natriuretic Pept 177 pg/mL
[2024-06-05] MEDS: SODIUM CHLORIDE 0.9% 1,000 ML IV STA (00:23)
[2024-06-05] MEDS: ONDANSETRON 4 MG/2 ML VIAL IVP STA (00:23)
[2024-06-05] MEDS: ACETAMINOPHEN TAB 500 MG TAB PO STA (00:24)
--- NOTE | 2024-06-05 01:02 | XR ---
EXAMINATION TYPE: XR chest 2V DATE OF EXAM: 06/05/2024 12:57 AM COMPARISON: CT 2017 CLINICAL INDICATION: Female, 29 years old with history of cough, shortness of breath, dizziness, TECHNIQUE: Frontal and lateral views of the chest are obtained. FINDINGS: There is no focal air space opacity, pleural effusion, or pneumothorax seen. The cardiac silhouette size remains within normal limits. The osseous structures are intact. IMPRESSION: No acute cardiopulmonary process. [facility], , 06/05/2024 1:00 AM
[2024-06-05 01:29] LABS: Appearance,Urine Clear (Clear); Bilirubin,Urine Negative (Negative); Blood,Urine Negative (Negative); Color,Urine Yellow; Glucose,Urine (UA) Negative (Negative); Ketones,Urine Negative (Negative); Leukocyte Esterase,Urine Negative (Negative); Nitrite,Urine Negative (Negative); Protein,Urine Negative (Negative); Specific Gravity,Urine 1.022 (1.001-1.035); Urobilinogen,Urine <2.0 mg/dL (<2.0)
[2024-06-05 01:58] VITALS: BP 115/70; PULSE 59; RESP 16; TEMP 97.7
== END 2024-06-05 01:58 | disposition home or self-care (01) ==
LOC: EC 22:08
DX: R42 Dizziness and giddiness (principal); R07.9 Chest pain, unspecified; R11.2 Nausea with vomiting, unspecified; J06.9 Acute upper respiratory infection, unspecified; F17.290 Nicotine dependence, other tobacco product, uncomplicated; Z88.1 Allergy status to other antibiotic agents; Z91.011 Allergy to milk products; Z91.018 Allergy to other foods; Z88.8 Allergy status to other drugs, medicaments and biological substances
CPT/HCPCS: 36415; 71046; 80053; 81003; 82150; 83690; 83735; 83880; 84484; 85025; 85610; 85730; 87636; 93005; 96361; 96374; 99284

== ENCOUNTER 2024-08-26 19:00 | Emergency (ER) | payer OTHER ==
--- NOTE | 2024-08-26 19:47 | ED ---
Abdominal Pain HPI - General Chief Complaint: Abdominal Pain Stated Complaint: pelvic pain Time Seen by Provider: 08/26/24 19:43 Source: patient, RN notes reviewed Mode of arrival: ambulatory Limitations: no limitations - History of Present Illness Initial Comments: 29-year-old A1 female presenting to the ER for evaluation of left-sided pelvic pain. Patient reports a history of a hysterectomy completed in January 2024 at [facility]. Hysterectomy was completed due to 2 pregnancies with placenta previa and hemorrhaging along with abnormal Pap smears. Patient states since May she has been experiencing a left-sided pelvic discomfort. She states it starts in her lower back and radiates to her left side. She reports over the past couple of weeks she has noticed radiation of pain to her right lower side. Patient reports her was rubbing her back due to pain approximately 3 weeks ago and noticed a golf ball size which she believes lymph node to her left lower back. She states this was extremely tender to touch. It has decreased in size since then. Patient reports recently she started to have pain with urination. She does not state it feels like a UTI but states it feels like pelvic floor muscle dysfunction. She has taken [id number] ibuprofen and smoked marijuana with relief of pain. Her pain is currently 3 out of 10. She denies any vaginal bleeding or discharge. Denies any fevers, chills, candelaria sea, vomiting, constipation/diarrhea or peripheral edema. Patient is scheduled to follow-up with [facility] for ultrasound on September 06, 2024 but states she was unable to wait that long given pain. No other complaints. - Related Data Previous Rx's Medication Instructions Recorded OLANZapine [ZyPREXA] 15 mg PO HS #30 tab 06/16/17 Sertraline [Zoloft] 100 mg PO DAILY #30 tab 06/16/17 Allergies Allergy/AdvReac Type Severity Reaction Status Date / Time adhesive tape Allergy Rash/Hives Verified 08/26/24 19:28 metronidazole [From Flagyl] Allergy Rash/Hives Verified 08/26/24 19:28 pineapple Allergy Unknown Verified 08/26/24 19:28 Milk Containing Products AdvReac Nausea & Verified 08/26/24 19:28 (Dairy) Vomiting [Dairy] Review of Systems ROS Statement: Those systems with pertinent positive or pertinent negative responses have been documented in the HPI. ROS Other: All systems not noted in ROS Statement are negative. Past Medical History Additional Past Medical History / Comment(s): QT prolongation, suicide attempt. 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 Poss POTS- no confirmed History of Any Multi-Drug Resistant Organisms: None Reported Past Surgical History: Hysterectomy Additional Past Surgical History / Comment(s): Hysterectomy 01/27/24 Past Anesthesia/Blood Transfusion Reactions: No Reported Reaction Additional Past Anesthesia/Blood Transfusion Reaction / Comment(s): patient has never received blood transfusions of anesthesia Past Psychological History: Bipolar, Depression Smoking Status: Vaper Past Alcohol Use History: None Reported Past Drug Use History: Marijuana - Past Family History Father Family Medical History: No Reported History Mother History Unknown: Yes Family Medical History: No Reported History General Exam Limitations: no limitations General appearance: alert, in no apparent distress Respiratory exam: Present: normal lung sounds bilaterally. Absent: respiratory distress, wheezes, rales, rhonchi, stridor Cardiovascular Exam: Present: regular rate, normal rhythm, normal heart sounds. Absent: systolic murmur, diastolic murmur, rubs, gallop, clicks GI/Abdominal exam: Present: soft, tenderness (Left upper quadrant/left lower quadrant), normal bowel sounds Extremities exam: Present: normal inspection, full ROM, normal capillary refill. Absent: tenderness, pedal edema, joint swelling, calf tenderness Back exam: Present: full ROM, tenderness (Left pelvic girdle there is a tender grape size nodule noted. No overlying skin changes) Neurological exam: Present: alert, oriented X3, CN II-XII intact Skin exam: Present: warm, dry, intact, normal color. Absent: rash Course Vital Signs 08/26/24 08/26/24 19:24 21:09 Temperature 97.9 F 97.5 F L Pulse Rate 68 62 Respiratory 18 16 Rate Blood Pressure 117/74 132/76 O2 Sat by Pulse 100 100 Oximetry Medical Decision Making - Medical Decision Making Was pt. sent in by a medical professional or institution (DEMETRA Arias, MAIL HANDLER EQUIPMENT OPERATOR, urgent care, hospital, or usp...) When possible be specific @ -[No] Did you speak to anyone other than the patient for history (EMS, parent, family, police, friend...)? What history was obtained from this source @ -[No] Did you review nursing and triage notes (agree or disagree)? Why? @ -[I reviewed and agree with nursing and triage notes] Were old charts reviewed (outside hosp., previous admission, EMS record, old EKG, old radiological studies, urgent care reports/EKG's, usp records)? Report findings @ -[No old charts were reviewed] Differential Diagnosis (chest pain, altered mental status, abdominal pain women, abdominal pain men, vaginal bleeding, weakness, fever, dyspnea, syncope, headache, dizziness, GI bleed, back pain, seizure, CVA, palpatations, mental health, musculoskeletal)? @ -Differential Abdominal Pain WomenAppendicitis, Cholecystitis, diverticulosis, ischemic bowel, pancreatitis, hepatitis, UTI, gastroenteritis, AAA, incarcerated hernia, bowel obstruction, constipation, inflammatory bowel, hepatitis, peptic ulcer disease, splenic infarction, perforated viscus, vulvitis, ovarian torsion, PID, kidney stone, placenta abruption, this is not meant to be an all-inclusive list EKG interpreted by me (3pts min.). @ -None done X-rays interpreted by me (1pt min.). @ -[None done] CT interpreted by me (1pt min.). @ -[None done] U/S interpreted by me (1pt. min.). @ -[None done] What testing was considered but not performed or refused? (CT, X-rays, U/S, labs)? Why? @ -[None] What meds were considered but not given or refused? Why? @ -[None] Did you discuss the management of the patient with other professionals (professionals i.e. , PA, MAIL HANDLER EQUIPMENT OPERATOR, lab, RT, psych nurse, home health care social worker, steward racetrack, teacher, correction officer city or county jail, high risk case manager)? Give summary @ -[No] Was smoking cessation discussed for >3mins.? @ -[No] Was critical care preformed (if so, how long)? @ -[No] Were there social determinants of health that impacted care today? How? (Homelessness, low income, unemployed, alcoholism, drug addiction, transportation, low edu. Level, literacy, decrease access to med. care, correction, rehab)? @ -[No] Was there de-escalation of care discussed even if they declined (Discuss DNR or withdrawal of care, Hospice)? DNR status @ -[No] What co-morbidities impacted this encounter? (DM, HTN, Smoking, COPD, CAD, Cancer, CVA, ARF, Chemo, Hep., AIDS, mental health diagnosis, sleep apnea, morbid obesity)? @ -[None] Was patient admitted / discharged? Hospital course, mention meds given and route, prescriptions, significant lab abnormalities, going to OR and other pertinent info. @ -[hospital course] Undiagnosed new problem with uncertain prognosis? @ -[No] Drug Therapy requiring intensive monitoring for toxicity (Heparin, Nitro, Insulin, Cardizem)? @ -[No] Were any procedures done? @ -[No] Diagnosis/symptom? @ -[default] Acute, or Chronic, or Acute on Chronic? @ -[default] Uncomplicated (without systemic symptoms) or Complicated (systemic symptoms)? @ -[default] Side effects of treatment? @ -[No] Exacerbation, Progression, or Severe Exacerbation? @ -[No] Poses a threat to life or bodily function? How? (Chest pain, [place], [place], pneumonia, PE, COPD, DKA, ARF, appy, cholecystitis, CVA, Diverticulitis, Homicidal, Suicidal, threat to staff... and all critical care pts) @ -[No] - Lab Data Result diagrams: 08/26/24 20:09 08/26/24 20:09 Lab Results 08/26/24 08/26/24 08/26/24 Range/Units 20:09 20:09 20: WBC 4.6 (3.8-10.6) k/uL RBC 4.48 (3.80-5.40) m/uL Hgb 13.2 (11.4-16.0) gm/dL Hct 40.7 (34.0-46.0) % MCV 90.8 (80.0-100.0) fL MCH 29.5 (25.0-35.0) pg MCHC 32.5 (31.0-37.0) g/dL RDW 12.4 (11.5-15.5) % Plt Count 245 (150-450) k/uL MPV 7.5 Neutrophils % 50 % Lymphocytes % 38 % Monocytes % 7 % Eosinophils % 2 % Basophils % 1 % Neutrophils # 2.3 (1.3-7.7) k/uL Lymphocytes # 1.8 (1.0-4.8) k/uL Monocytes # 0.3 (0-1.0) k/uL Eosinophils # 0.1 (0-0.7) k/uL Basophils # 0.0 (0-0.2) k/uL Sodium 136 L (137-145) mmol/L Potassium 4.2 (3.5-5.1) mmol/L Chloride 101 (98-107) mmol/L Carbon Dioxide 28 (22-30) mmol/L Anion Gap 7 mmol/L BUN 17 (7-17) mg/dL Creatinine 0.70 (0.52-1.04) mg/dL Est GFR (CKD-EPI)AfAm >90 (>60 ml/min/1.73 sqM) Est GFR (CKD-EPI)NonAf >90 (>60 ml/min/1.73 sqM) Glucose 86 (74-99) mg/dL Plasma Lactic Acid Delvin (0.7-2.0) mmol/L Calcium 9.4 (8.4-10.2) mg/dL Total Bilirubin 0.5 (0.2-1.3) mg/dL AST 19 (14-36) U/L ALT 16 (4-34) U/L Alkaline Phosphatase 45 (38-126) U/L Total Protein 7.4 (6.3-8.2) g/dL Albumin 4.6 (3.5-5.0) g/dL Amylase 41 (30-110) U/L Lipase 66 (23-300) U/L HCG, Quant <2.4 mIU/mL Urine Color Colorless Urine Appearance Cloudy H (Clear) Urine pH 7.0 (5.0-8.0) Ur Specific [place] 1.018 (1.001-1.035) Urine Protein Negative (Negative) Urine Glucose (UA) Negative (Negative) Urine Ketones Negative (Negative) Urine Blood Negative (Negative) Urine Nitrite Negative (Negative) Urine Bilirubin Negative (Negative) Urine Urobilinogen <2.0 (<2.0) mg/dL Ur Leukocyte Esterase Negative (Negative) Urine RBC 2 (0-5) /hpf Urine WBC 1 (0-5) /hpf Ur Squamous Epith Cells 1 (0-4) /hpf Urine Mucus Rare H (None) /hpf Urine Yeast (Budding) Few H (None) /hpf 08/26/24 Range/Units 20:09 WBC (3.8-10.6) k/uL RBC (3.80-5.40) m/uL Hgb (11.4-16.0) gm/dL Hct (34.0-46.0) % MCV (80.0-100.0) fL MCH (25.0-35.0) pg MCHC (31.0-37.0) g/dL RDW (11.5-15.5) % Plt Count (150-450) k/uL MPV Neutrophils % % Lymphocytes % % Monocytes % % Eosinophils % % Basophils % % Neutrophils # (1.3-7.7) k/uL Lymphocytes # (1.0-4.8) k/uL Monocytes # (0-1.0) k/uL Eosinophils # (0-0.7) k/uL Basophils # (0-0.2) k/uL Sodium (137-145) mmol/L Potassium (3.5-5.1) mmol/L Chloride (98-107) mmol/L Carbon Dioxide (22-30) mmol/L Anion Gap mmol/L BUN (7-17) mg/dL Creatinine (0.52-1.04) mg/dL Est GFR (CKD-EPI)AfAm (>60 ml/min/1.73 sqM) Est GFR (CKD-EPI)NonAf (>60 ml/min/1.73 sqM) Glucose (74-99) mg/dL Plasma Lactic Acid Delvin 1.3 (0.7-2.0) mmol/L Calcium (8.4-10.2) mg/dL Total Bilirubin (0.2-1.3) mg/dL AST (14-36) U/L ALT (4-34) U/L Alkaline Phosphatase (38-126) U/L Total Protein (6.3-8.2) g/dL Albumin (3.5-5.0) g/dL Amylase (30-110) U/L Lipase (23-300) U/L HCG, Quant mIU/mL Urine Color Urine Appearance (Clear) Urine pH (5.0-8.0) Ur Specific [place] (1.001-1.035) Urine Protein (Negative) Urine Glucose (UA) (Negative) Urine Ketones (Negative) Urine Blood (Negative) Urine Nitrite (Negative) Urine Bilirubin (Negative) Urine Urobilinogen (<2.0) mg/dL Ur Leukocyte Esterase (Negative) Urine RBC (0-5) /hpf Urine WBC (0-5) /hpf Ur Squamous Epith Cells (0-4) /hpf Urine Mucus (None) /hpf Urine Yeast (Budding) (None) /hpf Disposition Clinical Impression: Pelvic pain Disposition: HOME SELF-CARE Condition: Stable Additional Instructions: Follow close with CADASTRAL SURVEYOR. Return to the ER for any new or worsening concerns. Is patient prescribed a controlled substance at d/c from ED?: No Referrals: None,Stated [Primary Care Provider] - 1-2 days Dee Galvez DO [Doctor of Osteopathic Medicine] - 1-2 days Forms: Area PCPs Time of Disposition: 22:38
[2024-08-26] MEDS: SODIUM CHLORIDE 0.9% 1,000 ML IV ONE (20:27)
[2024-08-26] MEDS: KETOROLAC 15 MG/ML 1 ML VIAL IVP STA (20:28)
[2024-08-26 20:38] LABS: Appearance,Urine Cloudy (Clear); Bilirubin,Urine Negative (Negative); Blood,Urine Negative (Negative); Budding Yeast,Urine Few /hpf; Color,Urine Colorless; Glucose,Urine (UA) Negative (Negative); Ketones,Urine Negative (Negative); Leukocyte Esterase,Urine Negative (Negative); Mucus,Urine Rare /hpf; Nitrite,Urine Negative (Negative); Protein,Urine Negative (Negative); RBC,Urine 2 /hpf (0-5); Specific Gravity,Urine 1.018 (1.001-1.035); Squamous Epithelial Cell,Urine 1 /hpf (0-4); Urobilinogen,Urine <2.0 mg/dL (<2.0); WBC,Urine 1 /hpf (0-5)
[2024-08-26 20:43] LABS: Basophils % (A) 1 %; Eosinophils # (A) 0.1 k/uL (0-0.7); Eosinophils % (A) 2 %; HCT 40.7 % (34.0-46.0); HGB 13.2 gm/dL (11.4-16.0); Lymphocytes # (A) 1.8 k/uL (1.0-4.8); Lymphocytes % (A) 38 %; MCH 29.5 pg (25.0-35.0); MCHC 32.5 g/dL (31.0-37.0); MCV 90.8 fL (80.0-100.0); Mean Platelet Volume 7.5; Monocytes # (A) 0.3 k/uL (0-1.0); Monocytes % (A) 7 %; Neutrophils # (A) 2.3 k/uL (1.3-7.7); Neutrophils % (A) 50 %; Platelet Count 245 k/uL (150-450); RBC 4.48 m/uL (3.80-5.40); RDW 12.4 % (11.5-15.5); WBC 4.6 k/uL (3.8-10.6)
[2024-08-26 20:52] LABS: ALT 16 U/L (4-34); AST 19 U/L (14-36); African American GFR (CKD) >90 (>60 ml/min/1.73 sqM); Albumin 4.6 g/dL (3.5-5.0); Alkaline Phosphatase 45 U/L (38-126); Amylase 41 U/L (30-110); Anion Gap 7 mmol/L; Blood Urea Nitrogen 17 mg/dL (7-17); Calcium 9.4 mg/dL (8.4-10.2); Carbon Dioxide 28 mmol/L (22-30); Chloride 101 mmol/L (98-107); Glucose 86 mg/dL (74-99); Lipase 66 U/L (23-300); Non-African American GFR(CKD) >90 (>60 ml/min/1.73 sqM); Potassium 4.2 mmol/L (3.5-5.1); Sodium 136 mmol/L (137-145); Total Bilirubin 0.5 mg/dL (0.2-1.3); Total Protein 7.4 g/dL (6.3-8.2)
[2024-08-26 21:08] LABS: HCG,Quantitative Serum <2.4 mIU/mL
--- NOTE | 2024-08-26 21:59 | US ---
EXAMINATION TYPE: US pelvic complete DATE OF EXAM: 08/26/2024 COMPARISON: NONE CLINICAL INDICATION: Female, 29 years old with history of left sided pelvic pain hx hysterectomy; Par tial hysterectomy in Jan 2024, still has both ovaries TECHNIQUE: Transabdominal (TA). Transabdominal grayscale sonographic images of the pelvis were acquired. Doppler imaging: Color Doppler Images were obtained. Spectral doppler images were obtained. FINDINGS: Date of LMP: Unknown EXAM MEASUREMENTS: Right Ovary: 3.5 x 2.6 x 2.3 cm Left Ovary: 4.1 x 1.6 x 2.3 cm 1. Uterus: Surgically absent 2. Endometrium: Surgically absent 3. Right Ovary: Dominant follicle = 2.4 cm 4. Left Ovary: wnl Spectral, color and waveform doppler imaging shows good arterial and venous flow within the ovaries ; there is no evidence for ovarian torsion. 5. Bilateral Adnexa: no free fluid 6. Posterior cul-de-sac: no free fluid IMPRESSION: Post surgical changes of previous hysterectomy. Otherwise, unremarkable pelvic ultrasound exam. [facility], , 08/26/2024 9:56 PM
[2024-08-26 22:58] VITALS: BP 103/67; PULSE 45; RESP 17; TEMP 97.9
== END 2024-08-26 23:00 | disposition home or self-care (01) ==
LOC: EC 19:00
DX: R10.2 Pelvic and perineal pain (principal); F17.290 Nicotine dependence, other tobacco product, uncomplicated
CPT/HCPCS: 36415; 80053; 82150; 83605; 83690; 85025; 81001; 84702; 93975; 76856; 99284; 96374; 96361; J1885

== ENCOUNTER 2024-12-15 19:18 | Emergency (ER) | payer OTHER ==
[2024-12-15 19:25] VITALS: TEMP 98
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
[2024-12-15 23:09] VITALS: BP 112/82; PULSE 87; RESP 20
== END 2024-12-15 23:05 | disposition home or self-care (01) ==
LOC: EC 19:18
DX: F41.9 Anxiety disorder, unspecified (principal); F17.290 Nicotine dependence, other tobacco product, uncomplicated; Z91.048 Other nonmedicinal substance allergy status; Z88.1 Allergy status to other antibiotic agents; Z91.018 Allergy to other foods; Z91.011 Allergy to milk products
CPT/HCPCS: 82075; 99284